=== PATIENT | female | born 1950 | race Hispanic/Latino ===

== ENCOUNTER 2018-07-30 10:57 | Outpatient (CLI) | payer MEDICARE | END 2018-07-30 10:58 | disposition home or self-care (01) | LOC: BICMAMMO 10:57 | PROVIDERS: ATTEND Nurse Practitioner Family | DX: Z12.31 Encounter for screening mammogram for malignant neoplasm of breast (principal); R92.1 Mammographic calcification found on diagnostic imaging of breast | CPT/HCPCS: 77063; 77067 ==

== ENCOUNTER 2018-09-11 11:12 | Emergency (ER) | payer MEDICARE | END 2018-09-11 11:58 | disposition home or self-care (01) | LOC: ERS 11:12 | DX: M54.16 Radiculopathy, lumbar region (principal); E11.9 Type 2 diabetes mellitus without complications; I10 Essential (primary) hypertension; Z79.899 Other long term (current) drug therapy; Z79.84 Long term (current) use of oral hypoglycemic drugs | CPT/HCPCS: 99283 ==

== ENCOUNTER 2019-08-19 16:07 | Outpatient (CLI) | payer MEDICARE ==
--- NOTE | 2019-08-19 16:45 | MMO ---
Bilateral MAMMO Bilat Screen [facility]. CLINICAL HISTORY: Patient is 69 years old and is seen for screening. The patient has no family history of breast cancer. The patient has no personal history of cancer. VIEWS: The views performed were: bilateral craniocaudal with tomosynthesis and bilateral mediolateral oblique with tomosynthesis. FILMS COMPARED: The present examination has been compared to prior imaging studies performed at [facility] on 10/22/2007, 11/06/2008, 05/12/2013 and 07/30/2018. This study has been interpreted with the assistance of computer-aided detection. MAMMOGRAM FINDINGS: There are scattered fibroglandular densities. There are stable benign appearing calcifications seen in both breasts. There are no suspicious masses, suspicious calcifications, or new areas of architectural distortion. IMPRESSION: THERE IS NO MAMMOGRAPHIC EVIDENCE OF MALIGNANCY. A ROUTINE FOLLOW-UP MAMMOGRAM IN 1 YEAR IS RECOMMENDED. THE RESULTS OF THIS EXAM WERE SENT TO THE PATIENT. ACR BI-RADS Category 2 - Benign finding MAMMOGRAPHY NOTE: 1. A negative mammogram report should not delay a biopsy if a dominant of clinically suspicious mass is present. 2. Approximately 10% to 15% of breast cancers are not detected by mammography. 3. Adenosis and dense breasts may obscure an underlying neoplasm. Reported by: JOSE GASCA MD Electonically Signed: [id number]
== END 2019-08-19 16:08 | disposition home or self-care (01) ==
LOC: BICMAMMO 16:07
PROVIDERS: ATTEND Nurse Practitioner Family
DX: Z12.31 Encounter for screening mammogram for malignant neoplasm of breast (principal)
CPT/HCPCS: 77063; 77067

== ENCOUNTER 2021-03-20 19:53 | Inpatient (IN) | payer OTHER, MEDICARE ==
[~2021-03-20 19:53] MED LIST: Iopamidol-370 76% 500 ML 1 ML ONE; Rocuronium Bromide 10 MG/ML (10ML VIAL) ONE
[2021-03-20] MEDS ORDERED: Ondansetron PF 4 MG/2 ML Vial ONE (20:02)
[2021-03-20] MEDS ORDERED: Morphine 4 MG/ML VIAL ONE (20:02)
[2021-03-20 20:26] LABS: ALT (SGPT) 69 U/L (8-55); AST (SGOT) 132 U/L (5-34); Albumin 4.3 g/dL (3.4-4.8); Alkaline Phosphatase 199 U/L (40-110); Anion Gap 20 mmol/L (10-20); BUN (Urea Nitrogen) 17 mg/dL (9.8-20.1); Bilirubin, Total 0.4 mg/dL (0.2-1.2); Calc. Creatinine Clearance 0 mL/min (70-130); Calcium 9.8 mg/dL (7.8-10.44); Carbon Dioxide 18 mmol/L (23-31); Chloride 105 mmol/L (98-107); Globulin 4.3 g/dL (2.4-3.5); Glucose 262 mg/dL (80-115); Potassium 4.1 mmol/L (3.5-5.1); Protein, Total 8.6 g/dL (5.8-8.1); Sodium 139 mmol/L (136-145)
[2021-03-20 20:33] LABS: INR-International Normal Ratio 0.9; PTT 26.3 sec (22.9-36.1); Prothrombin Time 12.7 sec (12.0-14.7)
[2021-03-20 20:41] LABS: #Basophils 0.1 thou/uL (0.0-0.2); #Eosinphils 0.1 thou/uL (0.0-0.7); #Lymphocytes 5.3 thou/uL (1.20-3.40); #Monocytes 0.5 thou/uL (0.11-0.59); #Neutrophils 7.1 thou/uL (1.40-6.50); %Basophils 0.8 % (0.0-1.0); %Eosinophils 0.8 % (0.0-10.0); %Lymphocytes 40.4 % (21.0-51.0); %Monocytes 4.1 % (0.0-10.0); Hemoglobin 15.1 g/dL (12.0-16.0); Mean Corpuscular HGB CONC 33.3 g/dL (32.0-36.0); Mean Corpuscular Volume 87.3 fL (78.0-98.0); Mean Platelet Volume 8.2 fL (7.4-10.4); Platelet Count 359 thou/uL (130-400); RBC Distribution Width 12.3 % (11.5-14.5); White Blood Cell (WBC) Count 13.2 thou/uL (4.8-10.8)
[2021-03-20] MEDS ORDERED: Piperacillin/Tazobactam 4.5 GM VIAL ONE (20:43)
[2021-03-20] MEDS ORDERED: Boostrix 0.5 ML (Tdap) VIAL ONE (20:46)
[2021-03-20] MEDS ORDERED: Propofol 1,000 MG/100 ML VIAL IV ONE (21:05)
[2021-03-20] MEDS ORDERED: Calcium Chloride 1 GM/10 ML Abboject SYRINGE ONE (21:20)
[2021-03-20] MEDS ORDERED: Rocuronium Bromide 10 MG/ML (10ML VIAL) ONE (21:20)
[2021-03-20] MEDS ORDERED: Fentanyl 100 MCG/2 ML VIAL ONE (21:20)
[2021-03-20] MEDS ORDERED: PHENYLEPHRINE-NS 100 MCG/ML 10 ML SYRINGE ONE (21:20)
[2021-03-20] MEDS ORDERED: Midazolam HCl 2 mg/2 ml Vial ONE (21:27)
[2021-03-20 21:42] LABS: SARS-CoV-2 NAA Rapid Test Not Detected (NotDetected)
[2021-03-20 21:54] LABS: Phosphorus 2.6 mg/dL (2.3-4.7)
[2021-03-20 22:49] LABS: Actual Bicarbonate (HCO3a) 20.3 mEq/L (22-28); Base Excess (BEa) -4.2 mEq/L (-2.0 to +3.0); CO2 Tension 35.7 mmHg (35.0-45.0); Calcium, Ionized (arterial) 1.09 mmol/L (1.12-1.30); Carboxyhemoglobin (COHb) 0.2 gm% (0.0-3.0); Hemoglobin (Hb) 14.1 g/dL (12.0-16.0); O2 Tension (PaO2), arterial 86.2 mmHg (> 80.0); Potassium - ABG Lab 3.65 mmol/L (3.70-5.30); pH, Arterial 7.37 (7.35-7.45)
[2021-03-20 22:53] LABS: Puncture Site Arterial Line
[2021-03-20] MEDS ORDERED: Phenylephrine 10 MG/ML VIAL ONE (23:07)
[2021-03-21 00:21] LABS: Actual Bicarbonate (HCO3a) 17.2 mEq/L (22-28); Base Excess (BEa) -8.2 mEq/L (-2.0 to +3.0); CO2 Tension 35.2 mmHg (35.0-45.0); Calcium, Ionized (arterial) 1.19 mmol/L (1.12-1.30); Carboxyhemoglobin (COHb) 0.1 gm% (0.0-3.0); O2 Tension (PaO2), arterial 210.7 mmHg (> 80.0); Potassium - ABG Lab 3.38 mmol/L (3.70-5.30); pH, Arterial 7.31 (7.35-7.45)
[2021-03-21] MEDS ORDERED: Piperacillin/Tazobactam 3.375 GM VIAL ONE (00:30)
[2021-03-21] MEDS ORDERED: Fentanyl 100 MCG/2 ML VIAL ONE (01:42)
[2021-03-21] MEDS ORDERED: Midazolam HCl 2 mg/2 ml Vial ONE ×2 (01:42→02:24)
[2021-03-21] MEDS ORDERED: Fentanyl CADD 100 ML ONE (02:43)
[2021-03-21] MEDS ORDERED: Ventilator Sedation Protocol 1 EACH FS ONE (03:15)
[2021-03-21] MEDS ORDERED: Dextrose 50% Abboject 50 ML SYRINGE SLOW IVP PRN (03:15)
[2021-03-21] MEDS ORDERED: Ondansetron PF 4 MG/2 ML Vial IVP PRN (03:15)
[2021-03-21] MEDS ORDERED: Dextrose 5% in Water 1,000 ML IV PRN (03:15)
[2021-03-21] MEDS ORDERED: Fentanyl CADD 100 ML IV SCH (03:45)
[2021-03-21] MEDS ORDERED: Morphine 2 MG/ML VIAL SLOW IVP PRN (03:45)
[2021-03-21] MEDS ORDERED: Fentanyl BOLUS 250 ML IVPB PRN (03:45)
[2021-03-21] MEDS ORDERED: DISCONTINUE PREVIOUS NARCOTIC PAIN MEDICATIONS AND BENZODIAZEPINES FS SCH (03:45)
[2021-03-21] MEDS ORDERED: Propofol 1,000 MG/100 ML VIAL IV PRN (03:45)
[2021-03-21] MEDS ORDERED: Lorazepam 2 MG/ML VIAL SLOW IVP PRN (03:45)
[2021-03-21] MEDS ORDERED: Propofol BOLUS 1,000 MG/100 ML VIAL IV PRN (03:45)
[2021-03-21] MEDS: Lactated Ringer's 1,000 ML IV SCH ×5 (03:59→16:33)
[2021-03-21 04:01] LABS: Actual Bicarbonate (HCO3a) 19.1 mEq/L (22-28); Base Excess (BEa) -7.1 mEq/L (-2.0 to +3.0); Calcium, Ionized (arterial) 1.19 mmol/L (1.12-1.30); Carboxyhemoglobin (COHb) 0.6 gm% (0.0-3.0); Hemoglobin (Hb) 14.7 g/dL (12.0-16.0); O2 Tension (PaO2), arterial 67.5 mmHg (> 80.0); Potassium - ABG Lab 3.44 mmol/L (3.70-5.30); pH, Arterial 7.29 (7.35-7.45)
[2021-03-21 04:02] LABS: Puncture Site Arterial Line
[2021-03-21] MEDS ORDERED: Albumin 5% 0 ML ONE (04:16)
[2021-03-21] MEDS ORDERED: Albumin 5% 250 ML ONE ×2 (04:17→04:18)
[2021-03-21] MEDS: Piperacillin/Tazobactam 3.375 GM in Sodium Chloride 0.9% 100 ML IVPB SCH ×3 (06:19→18:00)
[2021-03-21] MEDS: Enoxaparin Sodium 40 MG/0.4 ML SYRINGE SC SCH (08:16)
[2021-03-21 08:24] LABS: Lactic Acid 7.7 mmol/L (0.5-2.2)
[2021-03-21] MEDS: Famotidine/PF 20 mg/2ml Vial SLOW IVP SCH ×2 (09:14→21:03)
[2021-03-21] MEDS ORDERED: Hydrocortisone Sod Succ/PF 100 mg/2 ml Vial IVP SCH (09:15)
[2021-03-21 09:26] LABS: Anion Gap 17 mmol/L (10-20); BUN (Urea Nitrogen) 17 mg/dL (9.8-20.1); Calc. Creatinine Clearance 60 mL/min (70-130); Calcium 7.7 mg/dL (7.8-10.44); Carbon Dioxide 15 mmol/L (23-31); Chloride 115 mmol/L (98-107); Glucose 393 mg/dL (80-115); Magnesium 1.5 mg/dL (1.6-2.6); Phosphorus 2.1 mg/dL (2.3-4.7); Potassium 3.2 mmol/L (3.5-5.1); Sodium 144 mmol/L (136-145)
[2021-03-21] MEDS: Insulin Regular 300 UNITS/3 ML VIAL SC PRN ×3 (10:08→21:04)
[2021-03-21 10:39] LABS: Hemoglobin 11.5 g/dL (12.0-16.0); Mean Corpuscular HGB CONC 33.2 g/dL (32.0-36.0); Mean Corpuscular Hemoglobin 29.4 pg (27.0-31.0); Mean Corpuscular Volume 88.5 fL (78.0-98.0); Mean Platelet Volume 8.2 fL (7.4-10.4); Platelet Count 290 thou/uL (130-400); RBC Distribution Width 12.6 % (11.5-14.5); Red Blood Cell (RBC) Count 3.91 mill/uL (4.20-5.40); White Blood Cell (WBC) Count 4.6 thou/uL (4.8-10.8)
[2021-03-21] MEDS: Sodium Chloride 0.9% 500 ML IVPB SCH ×2 (10:45→13:00)
[2021-03-21 10:59] LABS: Analyzer IN Cardio OR; CO2 Tension 34.6 mmHg (35.0-45.0); Calcium, Ionized (arterial) 1.09 mmol/L (1.12-1.30); Carboxyhemoglobin (COHb) 0.5 gm% (0.0-3.0); Hemoglobin (Hb) 13.9 g/dL (12.0-16.0); O2 Tension (PaO2), arterial 80.5 mmHg (> 80.0); Potassium - ABG Lab 3.75 mmol/L (3.70-5.30)
[2021-03-21 11:00] LABS: Actual Bicarbonate (HCO3a) 16.7 mEq/L (22-28); Analyzer IN Cardio OR; Base Excess (BEa) -7.2 mEq/L (-2.0 to +3.0); CO2 Tension 29.5 mmHg (35.0-45.0); Calcium, Ionized (arterial) 1.17 mmol/L (1.12-1.30); Carboxyhemoglobin (COHb) 0.1 gm% (0.0-3.0); Hemoglobin (Hb) 13.3 g/dL (12.0-16.0); Potassium - ABG Lab 3.39 mmol/L (3.70-5.30); pH, Arterial 7.37 (7.35-7.45)
[2021-03-21 11:10] LABS: Puncture Site Arterial Line
[2021-03-21 11:11] LABS: Puncture Site Arterial Line
[2021-03-21 11:11] LABS: Band 44 % (5-11); Lymphocytes 15 % (21-51); MDiff Complete? YES; Metamyelocyte 13 % (0-0); Monocytes 9 % (0-10); Neutrophil 17 % (42-75); Platelet Morphology Comment Appears Adequate; Polychromasia SLIGHT = 2-3 cells (100X) (0-2/hpf); Reactive Lymphocytes 1 % (0-10); Reflex for Review?? NO; Vacuoles MODERATE
[2021-03-21] MEDS: Hydrocortisone Sod Succ/PF 100 mg/2 ml Vial IVP SCH ×2 (11:47→18:00)
[2021-03-21 13:19] LABS: Hemoglobin 10.2 g/dL (12.0-16.0); Platelet Count 238 thou/uL (130-400)
[2021-03-21] MEDS ORDERED: Sodium Chloride 0.9% 1,000 ML IV SCH (13:45)
[2021-03-21] MEDS ORDERED: Lactated Ringer's 1,000 ML IV SCH (14:45)
[2021-03-21] MEDS ORDERED: Potassium Phosphate 30 MMOL, Magnesium Sulfate 3 GM in Sodium Chloride 0.9% 250 ML 250 ML IVPB SCH (14:45)
[2021-03-21 18:20] LABS: Anion Gap 16 mmol/L (10-20); BUN (Urea Nitrogen) 17 mg/dL (9.8-20.1); Calc. Creatinine Clearance 69 mL/min (70-130); Calcium 7.3 mg/dL (7.8-10.44); Carbon Dioxide 16 mmol/L (23-31); Chloride 119 mmol/L (98-107); Glucose 242 mg/dL (80-115); Potassium 3.5 mmol/L (3.5-5.1); Sodium 147 mmol/L (136-145)
[2021-03-21] MEDS ORDERED: Acetaminophen 650 MG Suppository PR PRN (20:15)
[2021-03-21 22:07] LABS: Hemoglobin 9.6 g/dL (12.0-16.0); Platelet Count 211 thou/uL (130-400)
[2021-03-22] MEDS: Piperacillin/Tazobactam 3.375 GM in Sodium Chloride 0.9% 100 ML IVPB SCH ×5 (00:12→23:10)
[2021-03-22] MEDS: Hydrocortisone Sod Succ/PF 100 mg/2 ml Vial IVP SCH ×5 (00:13→23:10)
[2021-03-22 02:57] LABS: Hemoglobin 9.6 g/dL (12.0-16.0); Mean Corpuscular Hemoglobin 30.4 pg (27.0-31.0); Mean Corpuscular Volume 89.3 fL (78.0-98.0); Mean Platelet Volume 8.3 fL (7.4-10.4); Platelet Count 173 thou/uL (130-400); RBC Distribution Width 12.7 % (11.5-14.5); Red Blood Cell (RBC) Count 3.14 mill/uL (4.20-5.40); White Blood Cell (WBC) Count 11.8 thou/uL (4.8-10.8)
[2021-03-22 03:23] LABS: Band 43 % (5-11); Lymphocytes 10 % (21-51); MDiff Complete? YES; Metamyelocyte 2 % (0-0); Monocytes 1 % (0-10); Neutrophil 44 % (42-75)
[2021-03-22 03:49] LABS: Phosphorus 4.2 mg/dL (2.3-4.7)
[2021-03-22] MEDS: Insulin Regular 300 UNITS/3 ML VIAL SC PRN ×4 (03:54→22:14)
[2021-03-22] MEDS: Lactated Ringer's 1,000 ML IV SCH ×5 (03:56→18:24)
[2021-03-22 04:04] LABS: ALT (SGPT) 113 U/L (8-55); AST (SGOT) 125 U/L (5-34); Albumin 2.9 g/dL (3.4-4.8); Alkaline Phosphatase 68 U/L (40-110); Anion Gap 14 mmol/L (10-20); BUN (Urea Nitrogen) 18 mg/dL (9.8-20.1); Bilirubin, Total 1.1 mg/dL (0.2-1.2); Calc. Creatinine Clearance 71 mL/min (70-130); Calcium 7.8 mg/dL (7.8-10.44); Carbon Dioxide 18 mmol/L (23-31); Chloride 117 mmol/L (98-107); Globulin 1.9 g/dL (2.4-3.5); Glucose 219 mg/dL (80-115); Magnesium 2.1 mg/dL (1.6-2.6); Potassium 3.7 mmol/L (3.5-5.1); Protein, Total 4.8 g/dL (5.8-8.1); Sodium 145 mmol/L (136-145)
[2021-03-22 07:47] LABS: Hemoglobin 9.3 g/dL (12.0-16.0); Platelet Count 167 thou/uL (130-400)
[2021-03-22] MEDS: Enoxaparin Sodium 40 MG/0.4 ML SYRINGE SC SCH (09:38)
[2021-03-22] MEDS: Famotidine/PF 20 mg/2ml Vial SLOW IVP SCH ×2 (09:38→22:09)
[2021-03-22] MEDS ORDERED: Piperacillin/Tazobactam 3.375 GM VIAL ONE (11:08)
[2021-03-22] MEDS ORDERED: Hydrocortisone Sod Succ/PF 100 mg/2 ml Vial ONE ×2 (11:11→15:13)
[2021-03-22] MEDS ORDERED: Hydrocortisone Sod Succ/PF 100 mg/2 ml Vial IVP SCH (15:04)
[2021-03-22] MEDS ORDERED: Sodium Chloride 0.9% 1,000 ML IV SCH (15:15)
[2021-03-22 15:26] LABS: Platelet Count 138 thou/uL (130-400)
[2021-03-22] MEDS ORDERED: Norepinephrine 8 MG/0.9% NS 250 ML ONE (15:28)
[2021-03-22 15:43] LABS: Troponin I 0.123 ng/mL (< 0.028)
[2021-03-22] MEDS ORDERED: Vecuronium 10 MG VIAL ONE (16:02)
[2021-03-22 19:08] LABS: Puncture Site RRA
[2021-03-22] MEDS ORDERED: Norepinephrine 8 MG/0.9% NS 250 ML IVPB SCH (20:00)
[2021-03-22] MEDS ORDERED: Fentanyl CADD 100 ML ONE (21:39)
[2021-03-23 04:53] LABS: Troponin I 1.066 ng/mL (< 0.028)
[2021-03-23] MEDS ORDERED: Furosemide 40 MG/4 ML VIAL ONE ×2 (05:19→14:30)
[2021-03-23] MEDS: Hydrocortisone Sod Succ/PF 100 mg/2 ml Vial IVP SCH ×4 (05:21→23:48)
[2021-03-23] MEDS: Piperacillin/Tazobactam 3.375 GM in Sodium Chloride 0.9% 100 ML IVPB SCH ×4 (05:21→23:48)
[2021-03-23] MEDS: Lactated Ringer's 1,000 ML IV SCH (05:24)
[2021-03-23] MEDS ORDERED: Furosemide 40 MG/4 ML VIAL SLOW IVP SCH (05:30)
[2021-03-23 06:08] LABS: Anion Gap 15 mmol/L (10-20); BUN (Urea Nitrogen) 20 mg/dL (9.8-20.1); Calc. Creatinine Clearance 86 mL/min (70-130); Calcium 7.9 mg/dL (7.8-10.44); Carbon Dioxide 18 mmol/L (23-31); Chloride 118 mmol/L (98-107); Glucose 203 mg/dL (80-115); Potassium 3.5 mmol/L (3.5-5.1); Sodium 147 mmol/L (136-145)
[2021-03-23 06:18] LABS: Band 34 % (5-11); Hemoglobin 9.5 g/dL (12.0-16.0); Lymphocytes 5 % (21-51); MDiff Complete? YES; Mean Corpuscular HGB CONC 32.4 g/dL (32.0-36.0); Mean Corpuscular Hemoglobin 28.8 pg (27.0-31.0); Mean Platelet Volume 9.1 fL (7.4-10.4); Monocytes 1 % (0-10); Neutrophil 60 % (42-75); Platelet Count 181 thou/uL (130-400); RBC Distribution Width 12.9 % (11.5-14.5); Red Blood Cell (RBC) Count 3.31 mill/uL (4.20-5.40); White Blood Cell (WBC) Count 16.5 thou/uL (4.8-10.8)
[2021-03-23] MEDS ORDERED: Fentanyl 100 MCG/2 ML VIAL ONE (07:21)
[2021-03-23] MEDS ORDERED: Potassium Phosphate 30 MMOL in Sodium Chloride 0.9% 250 ML 250 ML IVPB SCH (07:30)
[2021-03-23] MEDS ORDERED: PROPOFOL 200 MG/20 ML VIAL ONE (07:48)
[2021-03-23] MEDS ORDERED: Rocuronium Bromide 10 MG/ML (10ML VIAL) ONE (07:48)
[2021-03-23 08:21] LABS: Phosphorus 2.6 mg/dL (2.3-4.7)
[2021-03-23] MEDS ORDERED: Dextrose 5% in Water 1,000 ML IV PRN (08:51)
[2021-03-23] MEDS ORDERED: Dextrose 50% Abboject 50 ML SYRINGE SLOW IVP PRN (08:51)
[2021-03-23] MEDS: Enoxaparin Sodium 40 MG/0.4 ML SYRINGE SC SCH (09:58)
[2021-03-23] MEDS: Famotidine/PF 20 mg/2ml Vial SLOW IVP SCH ×2 (09:58→21:47)
[2021-03-23] MEDS: Insulin Regular 300 UNITS/3 ML VIAL SC PRN ×3 (10:36→21:57)
[2021-03-23] MEDS ORDERED: Furosemide 20 MG/2 ML VIAL SLOW IVP SCH ×2 (14:45→22:30)
[2021-03-24] MEDS: Insulin Regular 300 UNITS/3 ML VIAL SC PRN ×2 (04:02→20:02)
[2021-03-24 04:43] LABS: Band 9 % (5-11); Hemoglobin 9.5 g/dL (12.0-16.0); Lymphocytes 7 % (21-51); MDiff Complete? YES; Mean Corpuscular HGB CONC 34.8 g/dL (32.0-36.0); Mean Corpuscular Hemoglobin 30.8 pg (27.0-31.0); Mean Corpuscular Volume 88.6 fL (78.0-98.0); Mean Platelet Volume 9.1 fL (7.4-10.4); Monocytes 2 % (0-10); Neutrophil 82 % (42-75); Platelet Count 128 thou/uL (130-400); RBC Distribution Width 12.5 % (11.5-14.5); Red Blood Cell (RBC) Count 3.09 mill/uL (4.20-5.40); White Blood Cell (WBC) Count 12.3 thou/uL (4.8-10.8)
[2021-03-24] MEDS: Piperacillin/Tazobactam 3.375 GM in Sodium Chloride 0.9% 100 ML IVPB SCH ×3 (05:07→18:10)
[2021-03-24] MEDS: Hydrocortisone Sod Succ/PF 100 mg/2 ml Vial IVP SCH ×2 (05:08→12:23)
[2021-03-24 05:24] LABS: Anion Gap 11 mmol/L (10-20); BUN (Urea Nitrogen) 16 mg/dL (9.8-20.1); Calc. Creatinine Clearance 92 mL/min (70-130); Calcium 7.8 mg/dL (7.8-10.44); Carbon Dioxide 25 mmol/L (23-31); Chloride 113 mmol/L (98-107); Glucose 187 mg/dL (80-115); Magnesium 1.8 mg/dL (1.6-2.6); Phosphorus 1.6 mg/dL (2.3-4.7); Potassium 2.3 mmol/L (3.5-5.1); Sodium 147 mmol/L (136-145)
[2021-03-24] MEDS ORDERED: MAGNESIUM SULFATE IVPB SCH (06:15)
[2021-03-24] MEDS ORDERED: POTASSIUM PHOSPHATE IVPB SCH (06:15)
[2021-03-24] MEDS ORDERED: SODIUM CHLORIDE 0.9% IVPB SCH (06:15)
[2021-03-24] MEDS: Famotidine/PF 20 mg/2ml Vial SLOW IVP SCH (08:26)
[2021-03-24] MEDS: Enoxaparin Sodium 40 MG/0.4 ML SYRINGE SC SCH (08:27)
[2021-03-24] MEDS: Famotidine 20 MG TAB PO SCH ×2 (09:00→20:11)
[2021-03-24] MEDS ORDERED: Sodium Bicarbonate Tab 325 MG TAB PER TUBE PRN (11:00)
[2021-03-24] MEDS ORDERED: Pancrelipase DR 12,000 1 CAP FS PRN (11:00)
[2021-03-24] MEDS ORDERED: Potassium Phosphate 20 MMOL in Sodium Chloride 0.9% 250 ML 250 ML IVPB SCH (12:00)
[2021-03-24] MEDS ORDERED: Furosemide 20 MG/2 ML VIAL SLOW IVP SCH ×2 (13:00→23:00)
[2021-03-24] MEDS ORDERED: hydrALAZINE 20 MG/ML VIAL SLOW IVP PRN (13:36)
[2021-03-24] MEDS ORDERED: Lisinopril 5 MG TAB PO SCH (14:15)
[2021-03-24] MEDS ORDERED: Melatonin 3 MG TAB PO PRN (23:27)
[2021-03-24] MEDS: Acetaminophen 650 MG/20.3 ML UDCUP PO SCH (23:58)
[2021-03-24] MEDS: Ketorolac Tromethamine 30 MG/ML VIAL IVP SCH (23:59)
[2021-03-25] MEDS ORDERED: Piperacillin/Tazobactam 3.375 GM VIAL ONE (00:14)
[2021-03-25] MEDS: Insulin Regular 300 UNITS/3 ML VIAL SC PRN ×3 (00:16→18:27)
[2021-03-25] MEDS: Piperacillin/Tazobactam 3.375 GM in Sodium Chloride 0.9% 100 ML IVPB SCH ×5 (00:16→23:21)
[2021-03-25] MEDS ORDERED: Morphine 4 MG/ML VIAL SLOW IVP SCH (02:37)
[2021-03-25 04:57] LABS: BUN (Urea Nitrogen) 13 mg/dL (9.8-20.1); Calc. Creatinine Clearance 96 mL/min (70-130); Calcium 8.4 mg/dL (7.8-10.44); Glucose 165 mg/dL (80-115); Magnesium 1.8 mg/dL (1.6-2.6)
[2021-03-25 05:06] LABS: Anion Gap 19 mmol/L (10-20); Carbon Dioxide 32 mmol/L (23-31); Chloride 106 mmol/L (98-107); Sodium 155 mmol/L (136-145)
[2021-03-25 05:13] LABS: Phosphorus 1.5 mg/dL (2.3-4.7); Potassium 2.3 mmol/L (3.5-5.1)
[2021-03-25] MEDS ORDERED: Electrolyte Replacement Protocol FS PRN (05:30)
[2021-03-25] MEDS ORDERED: Potassium Chloride 40 MEQ in Premix Bag 1 BAG IVPB SCH (05:30)
[2021-03-25] MEDS: Ketorolac Tromethamine 30 MG/ML VIAL IVP SCH ×4 (06:07→23:20)
[2021-03-25] MEDS ORDERED: [UNRECOGNIZED DRUG - OTHER] IVPB SCH (06:15)
[2021-03-25] MEDS ORDERED: POTASSIUM PHOSPHATE IVPB SCH (06:15)
[2021-03-25] MEDS ORDERED: MAGNESIUM SULFATE IVPB SCH (06:15)
[2021-03-25] MEDS: Acetaminophen 650 MG/20.3 ML UDCUP PO SCH ×4 (07:46→23:19)
[2021-03-25] MEDS ORDERED: Magnesium 2 GM/50 ML 2 GM in Premix Bag 1 BAG IVPB SCH (08:15)
[2021-03-25] MEDS ORDERED: Dextrose 5% in Water 1,000 ML IV SCH (08:15)
[2021-03-25] MEDS ORDERED: Potassium Phosphate 30 MMOL in Sodium Chloride 0.9% 500 ML IVPB SCH (08:15)
[2021-03-25] MEDS ORDERED: Lisinopril 5 MG TAB PO SCH (09:00)
[2021-03-25] MEDS: Famotidine 20 MG TAB PO SCH ×2 (09:49→20:50)
[2021-03-25] MEDS: Lisinopril 5 MG TAB PO SCH (09:50)
[2021-03-25] MEDS: Enoxaparin Sodium 40 MG/0.4 ML SYRINGE SC SCH (09:50)
[2021-03-25] MEDS ORDERED: Senokot 8.6 MG TAB PO PRN (11:21)
[2021-03-25] MEDS ORDERED: Morphine 4 MG/ML VIAL SLOW IVP PRN (11:27)
[2021-03-25] MEDS: traMADol HCl 50 MG TAB PO SCH ×3 (12:17→23:18)
[2021-03-25] MEDS: Potassium Phosphate 15 MMOL in Sodium Chloride 0.9% 250 ML 250 ML IVPB SCH (12:18)
[2021-03-25] MEDS: Saccharomyces boulardii 250 MG CAP PO SCH (20:50)
[2021-03-26] MEDS: traMADol HCl 50 MG TAB PO PRN ×3 (03:03→22:17)
[2021-03-26] MEDS: Acetaminophen 650 MG/20.3 ML UDCUP PO SCH ×4 (05:36→23:37)
[2021-03-26] MEDS: traMADol HCl 50 MG TAB PO SCH ×4 (05:47→23:33)
[2021-03-26] MEDS: Piperacillin/Tazobactam 3.375 GM in Sodium Chloride 0.9% 100 ML IVPB SCH (05:48)
[2021-03-26 06:37] LABS: Hemoglobin 9.6 g/dL (12.0-16.0); Mean Corpuscular Hemoglobin 28.2 pg (27.0-31.0); Mean Corpuscular Volume 87.9 fL (78.0-98.0); Mean Platelet Volume 9.2 fL (7.4-10.4); Platelet Count 124 thou/uL (130-400); RBC Distribution Width 12.7 % (11.5-14.5); Red Blood Cell (RBC) Count 3.39 mill/uL (4.20-5.40); White Blood Cell (WBC) Count 7.9 thou/uL (4.8-10.8)
[2021-03-26 07:12] LABS: Anion Gap 13 mmol/L (10-20); BUN (Urea Nitrogen) 14 mg/dL (9.8-20.1); Calc. Creatinine Clearance 114 mL/min (70-130); Calcium 7.9 mg/dL (7.8-10.44); Carbon Dioxide 33 mmol/L (23-31); Chloride 99 mmol/L (98-107); Glucose 163 mg/dL (80-115); Potassium 2.4 mmol/L (3.5-5.1); Sodium 143 mmol/L (136-145)
[2021-03-26] MEDS ORDERED: Magnesium 2 GM/50 ML 20 GM in Premix Bag 1 BAG IVPB SCH (07:45)
[2021-03-26 07:51] LABS: Band 5 % (5-11); Eosinophils 1 % (0-10); Lymphocytes 24 % (21-51); MDiff Complete? YES; Monocytes 2 % (0-10); Neutrophil 68 % (42-75); Platelet Morphology Comment Appears Decreased; Polychromasia SLIGHT = 2-3 cells (100X) (0-2/hpf)
[2021-03-26] MEDS: Potassium Chloride 20 MEQ in Premix Bag 1 BAG IVPB SCH ×3 (08:23→14:24)
[2021-03-26] MEDS: Enoxaparin Sodium 40 MG/0.4 ML SYRINGE SC SCH (08:23)
[2021-03-26] MEDS: Polyethylene Glycol 3350 17 GM Packet PO SCH (08:24)
[2021-03-26] MEDS: Saccharomyces boulardii 250 MG CAP PO SCH ×2 (08:24→21:08)
[2021-03-26] MEDS: Lisinopril 5 MG TAB PO SCH (08:24)
[2021-03-26] MEDS: Famotidine 20 MG TAB PO SCH ×2 (08:24→21:07)
[2021-03-26] MEDS: Potassium Phosphate 15 MMOL in Sodium Chloride 0.9% 250 ML 250 ML IVPB SCH (08:26)
[2021-03-26] MEDS: Insulin Regular 300 UNITS/3 ML VIAL SC PRN ×2 (12:02→16:29)
[2021-03-26] MEDS: guaiFENesin ER 600 MG TAB PO SCH (21:08)
[2021-03-27 05:21] LABS: Hemoglobin 10.9 g/dL (12.0-16.0); Mean Corpuscular HGB CONC 32.6 g/dL (32.0-36.0); Mean Corpuscular Hemoglobin 28.5 pg (27.0-31.0); Mean Corpuscular Volume 87.4 fL (78.0-98.0); Mean Platelet Volume 9.4 fL (7.4-10.4); Platelet Count 161 thou/uL (130-400); RBC Distribution Width 12.8 % (11.5-14.5); Red Blood Cell (RBC) Count 3.82 mill/uL (4.20-5.40)
[2021-03-27 05:38] LABS: Anion Gap 17 mmol/L (10-20); BUN (Urea Nitrogen) 10 mg/dL (9.8-20.1); Calc. Creatinine Clearance 120 mL/min (70-130); Carbon Dioxide 27 mmol/L (23-31); Chloride 97 mmol/L (98-107); Glucose 191 mg/dL (80-115); Magnesium 1.9 mg/dL (1.6-2.6); Phosphorus 2.2 mg/dL (2.3-4.7); Sodium 138 mmol/L (136-145)
[2021-03-27 05:39] LABS: Band 28 % (5-11); Lymphocytes 24 % (21-51); MDiff Complete? YES; Monocytes 3 % (0-10); Neutrophil 44 % (42-75); Platelet Morphology Comment Appears Adequate; Reactive Lymphocytes 1 % (0-10)
[2021-03-27 05:42] LABS: Potassium 2.9 mmol/L (3.5-5.1)
[2021-03-27] MEDS ORDERED: Potassium Chloride 20 MEQ TAB PO SCH (06:00)
[2021-03-27] MEDS ORDERED: Potassium Chloride 40 MEQ in Sodium Chloride 0.9% 250 ML 250 ML IVPB SCH (06:00)
[2021-03-27] MEDS: Acetaminophen 650 MG/20.3 ML UDCUP PO SCH ×4 (06:30→23:50)
[2021-03-27] MEDS: Insulin Regular 300 UNITS/3 ML VIAL SC PRN ×3 (06:30→18:37)
[2021-03-27] MEDS: traMADol HCl 50 MG TAB PO SCH ×4 (06:31→23:50)
[2021-03-27] MEDS: Enoxaparin Sodium 40 MG/0.4 ML SYRINGE SC SCH (09:29)
[2021-03-27] MEDS: guaiFENesin ER 600 MG TAB PO SCH ×2 (09:30→20:20)
[2021-03-27] MEDS: Lisinopril 5 MG TAB PO SCH (09:30)
[2021-03-27] MEDS: Famotidine 20 MG TAB PO SCH ×2 (09:30→20:20)
[2021-03-27] MEDS: Polyethylene Glycol 3350 17 GM Packet PO SCH (09:31)
[2021-03-27] MEDS: Saccharomyces boulardii 250 MG CAP PO SCH ×2 (09:32→20:21)
[2021-03-27] MEDS ORDERED: Furosemide 20 MG/2 ML VIAL SLOW IVP SCH (10:30)
[2021-03-27] MEDS: Potassium Phosphate 15 MMOL in Sodium Chloride 0.9% 250 ML 250 ML IVPB SCH (10:54)
[2021-03-27] MEDS ORDERED: Sucralfate 1 GM TAB PO PRN (11:49)
[2021-03-27 12:14] LABS: Bacteria/HPF None Seen HPF (None Seen); Bilirubin Negative (Negative); Blood, Urine Negative (Negative); Clarity Clear (Clear); Glucose, Urine (Dipstick) Greater than 1000 mg/dL (Negative); Ketone, Urine 60 mg/dL (Negative); Leukocyte Negative Leu/uL (Negative); Nitrite Negative (Negative); Protein, Urine (Dipstick) Negative (Neg-Trace); RBC/HPF 0-3 HPF (0-3); Specific Gravity, Urine 1.011 (1.002-1.036); Urobilinogen 3 mg/dL (Less than 2); WBC/HPF 0-3 HPF (0-3)
[2021-03-28 05:32] LABS: #Eosinphils 0.1 thou/uL (0.0-0.7); #Lymphocytes 1.6 thou/uL (1.20-3.40); #Monocytes 0.7 thou/uL (0.11-0.59); #Neutrophils 10.6 thou/uL (1.40-6.50); %Basophils 0.1 % (0.0-1.0); %Eosinophils 0.6 % (0.0-10.0); %Neutrophils 82.2 % (42.0-75.0); Hemoglobin 10.8 g/dL (12.0-16.0); Mean Corpuscular HGB CONC 34.2 g/dL (32.0-36.0); Mean Corpuscular Hemoglobin 29.9 pg (27.0-31.0); Mean Corpuscular Volume 87.2 fL (78.0-98.0); Mean Platelet Volume 9.4 fL (7.4-10.4); Platelet Count 210 thou/uL (130-400); RBC Distribution Width 13.1 % (11.5-14.5); Red Blood Cell (RBC) Count 3.63 mill/uL (4.20-5.40); White Blood Cell (WBC) Count 12.9 thou/uL (4.8-10.8)
[2021-03-28] MEDS: Acetaminophen 650 MG/20.3 ML UDCUP PO SCH ×3 (05:34→17:14)
[2021-03-28] MEDS: traMADol HCl 50 MG TAB PO SCH ×3 (05:34→17:09)
[2021-03-28 05:55] LABS: Anion Gap 16 mmol/L (10-20); BUN (Urea Nitrogen) 7 mg/dL (9.8-20.1); Calc. Creatinine Clearance 106 mL/min (70-130); Calcium 7.9 mg/dL (7.8-10.44); Carbon Dioxide 27 mmol/L (23-31); Chloride 98 mmol/L (98-107); Glucose 205 mg/dL (80-115); Magnesium 1.8 mg/dL (1.6-2.6); Phosphorus 2.5 mg/dL (2.3-4.7); Sodium 138 mmol/L (136-145)
[2021-03-28 05:57] LABS: Potassium 2.8 mmol/L (3.5-5.1)
[2021-03-28] MEDS ORDERED: Magnesium 2 GM/50 ML 2 GM in Premix Bag 1 BAG IVPB SCH (06:45)
[2021-03-28] MEDS: Insulin Regular 300 UNITS/3 ML VIAL SC PRN ×4 (06:52→20:18)
[2021-03-28] MEDS: Saccharomyces boulardii 250 MG CAP PO SCH (08:07)
[2021-03-28] MEDS: Enoxaparin Sodium 40 MG/0.4 ML SYRINGE SC SCH (08:07)
[2021-03-28] MEDS: Famotidine 20 MG TAB PO SCH ×2 (08:07→20:16)
[2021-03-28] MEDS: Lisinopril 5 MG TAB PO SCH (08:07)
[2021-03-28] MEDS: guaiFENesin ER 600 MG TAB PO SCH ×2 (08:07→20:16)
[2021-03-28] MEDS: Potassium Chloride 20 MEQ in Premix Bag 1 BAG IVPB SCH ×2 (08:54→11:00)
[2021-03-28] MEDS: Polyethylene Glycol 3350 17 GM Packet PO SCH (11:00)
[2021-03-28 12:05] VITALS: BMI 27.7
[2021-03-28] MEDS: Potassium Phosphate 15 MMOL in Sodium Chloride 0.9% 250 ML 250 ML IVPB SCH (17:09)
[2021-03-29] MEDS: traMADol HCl 50 MG TAB PO SCH ×5 (00:47→23:23)
[2021-03-29] MEDS: traMADol HCl 50 MG TAB PO PRN (00:48)
[2021-03-29] MEDS: Acetaminophen 650 MG/20.3 ML UDCUP PO SCH ×5 (00:48→23:22)
[2021-03-29] MEDS: Insulin Regular 300 UNITS/3 ML VIAL SC PRN ×4 (05:25→23:22)
[2021-03-29 05:48] LABS: Anion Gap 15 mmol/L (10-20); BUN (Urea Nitrogen) 7 mg/dL (9.8-20.1); Calc. Creatinine Clearance 106 mL/min (70-130); Calcium 7.8 mg/dL (7.8-10.44); Carbon Dioxide 25 mmol/L (23-31); Chloride 99 mmol/L (98-107); Glucose 193 mg/dL (80-115); Magnesium 1.9 mg/dL (1.6-2.6); Phosphorus 3.1 mg/dL (2.3-4.7); Potassium 3.1 mmol/L (3.5-5.1); Sodium 136 mmol/L (136-145)
[2021-03-29] MEDS ORDERED: Potassium Chloride 20 MEQ TAB PO SCH (07:45)
[2021-03-29] MEDS: Famotidine 20 MG TAB PO SCH ×2 (08:20→20:08)
[2021-03-29] MEDS: Lisinopril 5 MG TAB PO SCH (08:20)
[2021-03-29] MEDS: guaiFENesin ER 600 MG TAB PO SCH ×2 (08:21→20:08)
[2021-03-29] MEDS: Enoxaparin Sodium 40 MG/0.4 ML SYRINGE SC SCH (08:21)
[2021-03-29] MEDS: Polyethylene Glycol 3350 17 GM Packet PO SCH (08:21)
[2021-03-29] MEDS ORDERED: Calcium Carbonate 500 MG ChewTAB PO PRN (11:06)
[2021-03-29] MEDS: Potassium Phosphate 15 MMOL in Sodium Chloride 0.9% 250 ML 250 ML IVPB SCH (11:37)
[2021-03-30] MEDS: Acetaminophen 650 MG/20.3 ML UDCUP PO SCH ×2 (05:32→11:47)
[2021-03-30 05:33] LABS: #Eosinphils 0.2 thou/uL (0.0-0.7); #Lymphocytes 1.4 thou/uL (1.20-3.40); #Monocytes 0.7 thou/uL (0.11-0.59); #Neutrophils 8.2 thou/uL (1.40-6.50); %Basophils 0.4 % (0.0-1.0); %Eosinophils 1.8 % (0.0-10.0); %Lymphocytes 13.6 % (21.0-51.0); %Monocytes 6.4 % (0.0-10.0); %Neutrophils 77.7 % (42.0-75.0); Mean Corpuscular HGB CONC 32.2 g/dL (32.0-36.0); Mean Corpuscular Hemoglobin 28.3 pg (27.0-31.0); Mean Corpuscular Volume 87.9 fL (78.0-98.0); Platelet Count 362 thou/uL (130-400); RBC Distribution Width 13.7 % (11.5-14.5); Red Blood Cell (RBC) Count 3.54 mill/uL (4.20-5.40); White Blood Cell (WBC) Count 10.6 thou/uL (4.8-10.8)
[2021-03-30] MEDS: traMADol HCl 50 MG TAB PO SCH ×2 (05:33→11:47)
[2021-03-30] MEDS: Insulin Regular 300 UNITS/3 ML VIAL SC PRN ×2 (05:34→11:48)
[2021-03-30 05:53] LABS: Anion Gap 14 mmol/L (10-20); BUN (Urea Nitrogen) 7 mg/dL (9.8-20.1); Calc. Creatinine Clearance 104 mL/min (70-130); Calcium 7.9 mg/dL (7.8-10.44); Carbon Dioxide 24 mmol/L (23-31); Chloride 102 mmol/L (98-107); Glucose 189 mg/dL (80-115); Magnesium 1.9 mg/dL (1.6-2.6); Phosphorus 2.9 mg/dL (2.3-4.7); Potassium 3.5 mmol/L (3.5-5.1); Sodium 136 mmol/L (136-145)
[2021-03-30] MEDS ORDERED: Furosemide 20 MG/2 ML VIAL SLOW IVP SCH (08:15)
[2021-03-30] MEDS: Enoxaparin Sodium 40 MG/0.4 ML SYRINGE SC SCH (08:31)
[2021-03-30] MEDS: Famotidine 20 MG TAB PO SCH (08:31)
[2021-03-30] MEDS: guaiFENesin ER 600 MG TAB PO SCH (08:31)
[2021-03-30] MEDS: Polyethylene Glycol 3350 17 GM Packet PO SCH (08:32)
[2021-03-30] MEDS: Lisinopril 5 MG TAB PO SCH (08:33)
[2021-03-30] MEDS ORDERED: Potassium Phosphate 30 MMOL, Magnesium Sulfate 2 GM in Sodium Chloride 0.9% 250 ML 250 ML IVPB SCH (09:00)
[2021-03-30] MEDS ORDERED: Magnesium Sulfate 2 GM in Sodium Chloride 0.9% 100 ML IVPB SCH (09:00)
[2021-03-30] MEDS ORDERED: Morphine 4 MG/ML VIAL ONE (10:15)
[2021-03-30] MEDS ORDERED: Morphine 4 MG/ML VIAL SLOW IVP SCH ×2 (10:45)
[2021-03-30 11:13] VITALS: BP 127/76; TEMP 98.1
[2021-03-30] MEDS: traMADol HCl 50 MG TAB PO PRN (14:20)
== END 2021-03-30 14:30 | DRG 957 ==
LOC: ERS 19:53 → SDC/OP 21:39 → CCU 22:00 → SURG A 03-25 13:06
PROVIDERS: ADMIT Surgery; ATTEND Surgery
PROC: 05H633Z Insertion of Infusion Device into Left Subclavian Vein, Percutaneous Approach (ICD-10-PCS; principal; 2021-03-20)
PROC: 0BQT0ZZ Repair Diaphragm, Open Approach (ICD-10-PCS; 2021-03-21)
PROC: 0DQL0ZZ Repair Transverse Colon, Open Approach (ICD-10-PCS; 2021-03-21)
PROC: 0W9900Z Drainage of Right Pleural Cavity with Drainage Device, Open Approach (ICD-10-PCS; 2021-03-21)
PROC: 3E0M05Z Introduction of Adhesion Barrier into Peritoneal Cavity, Open Approach (ICD-10-PCS; 2021-03-21)
PROC: 0DH67UZ Insertion of Feeding Device into Stomach, Via Natural or Artificial Opening (ICD-10-PCS; 2021-03-21)
PROC: 0DQ80ZZ Repair Small Intestine, Open Approach (ICD-10-PCS; 2021-03-23)
DX: S27.808A Other injury of diaphragm, initial encounter (principal); A41.9 Sepsis, unspecified organism; S36.520A Contusion of ascending [right] colon, initial encounter; J96.00 Acute respiratory failure, unspecified whether with hypoxia or hypercapnia; K65.8 Other peritonitis; S22.42XA Multiple fractures of ribs, left side, initial encounter for closed fracture; J93.9 Pneumothorax, unspecified; S36.528A Contusion of other part of colon, initial encounter; E27.40 Unspecified adrenocortical insufficiency; E87.0 Hyperosmolality and hypernatremia; I24.8 Other forms of acute ischemic heart disease; D62 Acute posthemorrhagic anemia; E11.9 Type 2 diabetes mellitus without complications; I10 Essential (primary) hypertension; E87.70 Fluid overload, unspecified; K45.8 Other specified abdominal hernia without obstruction or gangrene; I95.9 Hypotension, unspecified; E87.6 Hypokalemia; D64.9 Anemia, unspecified; E83.39 Other disorders of phosphorus metabolism; E83.42 Hypomagnesemia; Z90.49 Acquired absence of other specified parts of digestive tract; Z79.84 Long term (current) use of oral hypoglycemic drugs; V89.2XXA Person injured in unspecified motor-vehicle accident, traffic, initial encounter
CPT/HCPCS: 31500; 36415; 36416; 36600; 70450; 71045; 71260; 72125; 74018; 74177; 76770; 80048; 80053; 81001; 82533; 82805; 83605; 83735; 83880; 84100; 84484; 85025; 85610; 85730; 86850; 86900; 86901; 90471; 90715; 93005; 93010; 93306; 94002; 94003; 94640; 96365; 96375; G0390; J0360; J1650; J1720; J1815; J1885; J1940; J2250; J2270; J2370; J2405; J2543; J2704; J3010; J3475; J3480; J3490; J7030; J7050; J7620; P9045; Q9967; S0028; U0002

== ENCOUNTER 2021-04-13 13:55 | Outpatient (CLI) | payer OTHER, MEDICARE | END 2021-04-13 13:56 | disposition home or self-care (01) | LOC: RAD 13:55 | PROVIDERS: ATTEND Surgery | DX: V89.2XXA Person injured in unspecified motor-vehicle accident, traffic, initial encounter (principal) | CPT/HCPCS: 71046 ==

== ENCOUNTER 2021-05-11 01:03 | Inpatient (IN) | payer MEDICARE ==
[2021-05-11 02:14] LABS: #Eosinphils 0.1 thou/uL (0.0-0.7); #Lymphocytes 2.4 thou/uL (1.20-3.40); #Monocytes 0.6 thou/uL (0.11-0.59); #Neutrophils 5.5 thou/uL (1.40-6.50); %Basophils 0.3 % (0.0-1.0); %Eosinophils 0.9 % (0.0-10.0); %Lymphocytes 27.6 % (21.0-51.0); %Monocytes 6.9 % (0.0-10.0); %Neutrophils 64.3 % (42.0-75.0); Hemoglobin 11.2 g/dL (12.0-16.0); Mean Corpuscular HGB CONC 33.6 g/dL (32.0-36.0); Mean Corpuscular Volume 83.3 fL (78.0-98.0); Mean Platelet Volume 7.1 fL (7.4-10.4); Platelet Count 356 thou/uL (130-400); RBC Distribution Width 14.8 % (11.5-14.5); White Blood Cell (WBC) Count 8.5 thou/uL (4.8-10.8)
[2021-05-11 02:34] LABS: ALT (SGPT) 8 U/L (8-55); AST (SGOT) 16 U/L (5-34); Albumin 3.6 g/dL (3.4-4.8); Alkaline Phosphatase 121 U/L (40-110); Anion Gap 11 mmol/L (10-20); BUN (Urea Nitrogen) 10 mg/dL (9.8-20.1); Bilirubin, Total 0.5 mg/dL (0.2-1.2); Calc. Creatinine Clearance 0 mL/min (70-130); Calcium 9.5 mg/dL (7.8-10.44); Carbon Dioxide 26 mmol/L (23-31); Chloride 101 mmol/L (98-107); Globulin 4.7 g/dL (2.4-3.5); Glucose 194 mg/dL (80-115); Potassium 4.1 mmol/L (3.5-5.1); Protein, Total 8.3 g/dL (5.8-8.1); Sodium 134 mmol/L (136-145)
[2021-05-11 04:08] LABS: Bacteria/HPF None Seen HPF (None Seen); Bilirubin Negative (Negative); Blood, Urine Negative (Negative); Clarity Clear (Clear); Glucose, Urine (Dipstick) Greater than 1000 mg/dL (Negative); Ketone, Urine Negative (Negative); Leukocyte 75 Leu/uL (Negative); Nitrite Negative (Negative); Protein, Urine (Dipstick) Negative (Neg-Trace); RBC/HPF 0-3 HPF (0-3); Specific Gravity, Urine 1.029 (1.002-1.036); Squamous Epithelial 0-3 HPF (0-3); Urobilinogen Normal mg/dL (Less than 2); pH, Urine 6.5 (5.0-9.0)
[2021-05-11] MEDS ORDERED: Morphine 4 MG/ML VIAL ONE (04:36)
[2021-05-11] MEDS ORDERED: Vancomycin 1 GM/200 ML BAG ONE (04:36)
[2021-05-11] MEDS ORDERED: Ondansetron PF 4 MG/2 ML Vial ONE ×2 (04:36→15:53)
[2021-05-11] MEDS ORDERED: Cefepime 2 GM VIAL ONE (04:36)
[2021-05-11] MEDS ORDERED: Dextrose 50% Abboject 50 ML SYRINGE SLOW IVP PRN (06:45)
[2021-05-11] MEDS ORDERED: Morphine 2 MG/ML VIAL SLOW IVP PRN ×2 (06:45→17:48)
[2021-05-11] MEDS ORDERED: hydrALAZINE 20 MG/ML VIAL SLOW IVP PRN (06:45)
[2021-05-11] MEDS ORDERED: Dextrose 5% in Water 1,000 ML IV PRN (06:45)
[2021-05-11] MEDS ORDERED: Insulin Regular 300 UNITS/3 ML VIAL SC PRN (06:53)
[2021-05-11] MEDS ORDERED: Heparin 1,000 UNITS/ML VIAL ONE (09:35)
[2021-05-11 11:43] VITALS: BMI 27.4
[2021-05-11] MEDS: Sodium Chloride 0.9% 1,000 ML IV SCH ×2 (11:54→16:56)
[2021-05-11] MEDS: Famotidine/PF 20 mg/2ml Vial SLOW IVP SCH ×2 (11:54→20:15)
[2021-05-11] MEDS ORDERED: Iopamidol 370 76% 100 ML VIAL ONE (13:50)
[2021-05-11] MEDS ORDERED: Phenylephrine 10 MG/ML VIAL ONE (15:14)
[2021-05-11] MEDS ORDERED: SUGAMMADEX SODIUM 200 MG/2 ML VIAL ONE (15:14)
[2021-05-11] MEDS ORDERED: Fentanyl 100 MCG/2 ML VIAL ONE (15:14)
[2021-05-11] MEDS ORDERED: PHENYLEPHRINE-NS 100 MCG/ML 10 ML SYRINGE ONE (15:14)
[2021-05-11] MEDS ORDERED: Linezolid 600 MG in Premix Bag 1 BAG IVPB SCH (15:45)
[2021-05-11] MEDS ORDERED: Levofloxacin 500 mg/D5W 100 ml Premix Bag ONE (15:47)
[2021-05-11] MEDS ORDERED: Succinylcholine 200 MG/10 ml SYRINGE FS ONE (15:53)
[2021-05-11] MEDS ORDERED: PROPOFOL 200 MG/20 ML VIAL ONE (15:53)
[2021-05-11] MEDS ORDERED: ePHEDrine Sulfate 50 MG/10 ML VIAL ONE (15:53)
[2021-05-11] MEDS ORDERED: Rocuronium Bromide 10 MG/ML (10ML VIAL) ONE (15:53)
[2021-05-11] MEDS ORDERED: Dexamethasone 20 MG/5 ML VIAL ONE (15:53)
[2021-05-11] MEDS ORDERED: Ondansetron HCl/PF 4 MG/2 ML Vial IVP PRN (16:27)
[2021-05-11] MEDS ORDERED: HYDROmorphone 2 MG/ML VIAL SLOW IVP PRN (16:27)
[2021-05-11] MEDS ORDERED: Promethazine HCl 25 MG/ML VIAL IVPB PRN (16:27)
[2021-05-11] MEDS ORDERED: traMADol HCl 50 MG TAB PO PRN (17:48)
[2021-05-11] MEDS: Acetaminophen 325 MG TAB PO SCH (20:15)
[2021-05-11] MEDS: Cefepime 2 GM in Sodium Chloride 0.9% 100 ML IVPB SCH (22:50)
[2021-05-11] MEDS: VANCOMYCIN 1.25 GM/250 ML BAG 1.25 GM in Premix Bag 1 BAG IVPB SCH (22:56)
[2021-05-11 23:12] LABS: SARS-CoV-2 NAA Rapid Test Not Detected (NotDetected)
[2021-05-12] MEDS: Sodium Chloride 0.9% 1,000 ML IV SCH ×2 (00:40→12:42)
[2021-05-12] MEDS: Acetaminophen 325 MG TAB PO SCH ×5 (01:40→22:53)
[2021-05-12 05:39] LABS: #Lymphocytes 1.7 thou/uL (1.20-3.40); #Monocytes 0.2 thou/uL (0.11-0.59); #Neutrophils 4.5 thou/uL (1.40-6.50); %Basophils 0.3 % (0.0-1.0); %Eosinophils 0.1 % (0.0-10.0); %Lymphocytes 26.9 % (21.0-51.0); %Monocytes 2.4 % (0.0-10.0); %Neutrophils 70.3 % (42.0-75.0); Hemoglobin 11.2 g/dL (12.0-16.0); Mean Corpuscular HGB CONC 33.2 g/dL (32.0-36.0); Mean Corpuscular Hemoglobin 27.9 pg (27.0-31.0); Mean Corpuscular Volume 83.9 fL (78.0-98.0); Mean Platelet Volume 7.3 fL (7.4-10.4); Platelet Count 358 thou/uL (130-400); RBC Distribution Width 14.7 % (11.5-14.5); Red Blood Cell (RBC) Count 4.03 mill/uL (4.20-5.40); White Blood Cell (WBC) Count 6.3 thou/uL (4.8-10.8)
[2021-05-12 06:06] LABS: Anion Gap 15 mmol/L (10-20); BUN (Urea Nitrogen) 11 mg/dL (9.8-20.1); Calc. Creatinine Clearance 87 mL/min (70-130); Calcium 9.3 mg/dL (7.8-10.44); Carbon Dioxide 23 mmol/L (23-31); Chloride 104 mmol/L (98-107); Glucose 128 mg/dL (80-115); Potassium 4.5 mmol/L (3.5-5.1); Sodium 137 mmol/L (136-145)
[2021-05-12] MEDS: metFORMIN 500 MG TAB PO SCH ×2 (08:48→21:42)
[2021-05-12] MEDS: Famotidine/PF 20 mg/2ml Vial SLOW IVP SCH ×2 (08:49→21:42)
[2021-05-12] MEDS: Loratadine 10 MG TAB PO SCH (08:49)
[2021-05-12] MEDS: Empagliflozin 10 MG TAB PO SCH (08:49)
[2021-05-12] MEDS: Cefepime 2 GM in Sodium Chloride 0.9% 100 ML IVPB SCH ×2 (10:26→21:42)
[2021-05-12] MEDS: Carvedilol 3.125 MG TAB PO SCH ×2 (11:11→17:10)
[2021-05-12] MEDS: VANCOMYCIN 1.25 GM/250 ML BAG 1.25 GM in Premix Bag 1 BAG IVPB SCH ×2 (11:45→22:46)
[2021-05-13] MEDS: Acetaminophen 325 MG TAB PO SCH ×3 (06:15→17:58)
[2021-05-13] MEDS: Carvedilol 3.125 MG TAB PO SCH ×2 (07:58→16:44)
[2021-05-13] MEDS ORDERED: Magnesium Citrate 300 ML BOT PO SCH (09:46)
[2021-05-13] MEDS: Cefepime 2 GM in Sodium Chloride 0.9% 100 ML IVPB SCH (10:08)
[2021-05-13] MEDS: Empagliflozin 10 MG TAB PO SCH (10:08)
[2021-05-13] MEDS: Loratadine 10 MG TAB PO SCH (10:08)
[2021-05-13] MEDS: Famotidine 20 MG TAB PO SCH ×2 (10:08→20:10)
[2021-05-13] MEDS: metFORMIN 500 MG TAB PO SCH ×2 (10:08→20:10)
[2021-05-13 10:41] LABS: Vancomycin, Trough 23.4 ug/mL
[2021-05-13] MEDS ORDERED: Vancomycin 1 GM in Premix Bag 1 BAG IVPB SCH (11:00)
[2021-05-13] MEDS: Piperacillin/Tazobactam 4.5 GM in Sodium Chloride 0.9% 100 ML IVPB SCH (17:58)
[2021-05-13] MEDS: Senokot S 8.6-50 MG TAB PO SCH (20:10)
[2021-05-14] MEDS: Acetaminophen 325 MG TAB PO SCH ×4 (00:43→17:10)
[2021-05-14] MEDS: Piperacillin/Tazobactam 4.5 GM in Sodium Chloride 0.9% 100 ML IVPB SCH ×3 (00:43→17:11)
[2021-05-14] MEDS: Famotidine 20 MG TAB PO SCH ×2 (08:06→20:50)
[2021-05-14] MEDS: Loratadine 10 MG TAB PO SCH (08:06)
[2021-05-14] MEDS: Senokot S 8.6-50 MG TAB PO SCH ×2 (08:06→20:50)
[2021-05-14] MEDS: Carvedilol 3.125 MG TAB PO SCH ×2 (08:06→17:10)
[2021-05-14] MEDS: metFORMIN 500 MG TAB PO SCH ×2 (08:06→20:49)
[2021-05-14] MEDS: Empagliflozin 10 MG TAB PO SCH (08:06)
[2021-05-14] MEDS: Polyethylene Glycol 3350 17 GM Packet PO SCH (08:07)
[2021-05-15] MEDS: Piperacillin/Tazobactam 4.5 GM in Sodium Chloride 0.9% 100 ML IVPB SCH ×3 (00:47→17:26)
[2021-05-15] MEDS: Acetaminophen 325 MG TAB PO SCH ×4 (00:47→17:25)
[2021-05-15] MEDS: Loratadine 10 MG TAB PO SCH (09:02)
[2021-05-15] MEDS: metFORMIN 500 MG TAB PO SCH ×2 (09:02→21:59)
[2021-05-15] MEDS: Carvedilol 3.125 MG TAB PO SCH ×2 (09:03→15:44)
[2021-05-15] MEDS: Senokot S 8.6-50 MG TAB PO SCH ×2 (09:03→21:59)
[2021-05-15] MEDS: Famotidine 20 MG TAB PO SCH ×2 (09:03→21:59)
[2021-05-15] MEDS: Polyethylene Glycol 3350 17 GM Packet PO SCH (09:09)
[2021-05-15] MEDS: Empagliflozin 10 MG TAB PO SCH (09:59)
[2021-05-15] MEDS: Enoxaparin Sodium 40 MG/0.4 ML SYRINGE SC SCH (21:59)
[2021-05-16] MEDS: Acetaminophen 325 MG TAB PO SCH ×4 (01:25→17:17)
[2021-05-16] MEDS: Piperacillin/Tazobactam 4.5 GM in Sodium Chloride 0.9% 100 ML IVPB SCH ×3 (02:17→17:19)
[2021-05-16] MEDS: Saccharomyces boulardii 250 MG CAP PO SCH (09:07)
[2021-05-16] MEDS: Polyethylene Glycol 3350 17 GM Packet PO SCH (09:08)
[2021-05-16] MEDS: metFORMIN 500 MG TAB PO SCH ×2 (09:08→20:41)
[2021-05-16] MEDS: Loratadine 10 MG TAB PO SCH (09:08)
[2021-05-16] MEDS: Senokot S 8.6-50 MG TAB PO SCH ×2 (09:08→20:41)
[2021-05-16] MEDS: Empagliflozin 10 MG TAB PO SCH (09:08)
[2021-05-16] MEDS: Famotidine 20 MG TAB PO SCH ×2 (09:08→20:42)
[2021-05-16] MEDS: Carvedilol 3.125 MG TAB PO SCH ×2 (09:10→17:17)
[2021-05-16 13:03] LABS: #Eosinphils 0.1 thou/uL (0.0-0.7); #Lymphocytes 2.1 thou/uL (1.20-3.40); #Monocytes 0.3 thou/uL (0.11-0.59); #Neutrophils 4.3 thou/uL (1.40-6.50); %Basophils 0.1 % (0.0-1.0); %Eosinophils 1.1 % (0.0-10.0); %Lymphocytes 31.3 % (21.0-51.0); %Monocytes 4.3 % (0.0-10.0); %Neutrophils 63.2 % (42.0-75.0); Hemoglobin 10.9 g/dL (12.0-16.0); Mean Corpuscular HGB CONC 31.8 g/dL (32.0-36.0); Mean Corpuscular Hemoglobin 26.8 pg (27.0-31.0); Mean Corpuscular Volume 84.2 fL (78.0-98.0); Mean Platelet Volume 7.1 fL (7.4-10.4); Platelet Count 349 thou/uL (130-400); RBC Distribution Width 14.6 % (11.5-14.5); Red Blood Cell (RBC) Count 4.06 mill/uL (4.20-5.40); White Blood Cell (WBC) Count 6.8 thou/uL (4.8-10.8)
[2021-05-16 13:30] LABS: ALT (SGPT) 9 U/L (8-55); AST (SGOT) 19 U/L (5-34); Albumin 3.4 g/dL (3.4-4.8); Alkaline Phosphatase 98 U/L (40-110); Anion Gap 13 mmol/L (10-20); BUN (Urea Nitrogen) 5 mg/dL (9.8-20.1); Bilirubin, Total 0.4 mg/dL (0.2-1.2); Calc. Creatinine Clearance 97 mL/min (70-130); Calcium 9.1 mg/dL (7.8-10.44); Carbon Dioxide 24 mmol/L (23-31); Chloride 107 mmol/L (98-107); Globulin 4.2 g/dL (2.4-3.5); Glucose 104 mg/dL (80-115); Potassium 3.6 mmol/L (3.5-5.1); Protein, Total 7.6 g/dL (5.8-8.1); Sodium 140 mmol/L (136-145)
[2021-05-16] MEDS: Enoxaparin Sodium 40 MG/0.4 ML SYRINGE SC SCH (20:41)
[2021-05-17] MEDS: Acetaminophen 325 MG TAB PO SCH ×4 (00:37→17:47)
[2021-05-17] MEDS: Piperacillin/Tazobactam 4.5 GM in Sodium Chloride 0.9% 100 ML IVPB SCH ×3 (02:15→17:46)
[2021-05-17] MEDS: Saccharomyces boulardii 250 MG CAP PO SCH (08:23)
[2021-05-17] MEDS: Empagliflozin 10 MG TAB PO SCH (08:24)
[2021-05-17] MEDS: metFORMIN 500 MG TAB PO SCH (08:24)
[2021-05-17] MEDS: Loratadine 10 MG TAB PO SCH (08:24)
[2021-05-17] MEDS: Famotidine 20 MG TAB PO SCH (08:24)
[2021-05-17] MEDS: Carvedilol 3.125 MG TAB PO SCH ×2 (08:25→16:53)
[2021-05-17] MEDS: Senokot S 8.6-50 MG TAB PO SCH (08:26)
[2021-05-17] MEDS: Polyethylene Glycol 3350 17 GM Packet PO SCH (08:26)
[2021-05-17 16:34] VITALS: BP 127/73; TEMP 98.1
[2021-05-18] MEDS ORDERED: Piperacillin/Tazobactam 3.375 GM in Sodium Chloride 0.9% 100 ML IVPB SCH (09:00)
== END 2021-05-17 20:25 | disposition home or self-care (01) | DRG 603 ==
LOC: ERS 01:03 → ERHOLD 04:06 → SJJU 11:18 → OBSVTOIN 05-12 16:05
PROVIDERS: ADMIT Surgery; ATTEND Surgery
PROC: 0J980ZX Drainage of Abdomen Subcutaneous Tissue and Fascia, Open Approach, Diagnostic (ICD-10-PCS; principal; 2021-05-11)
PROC: 02HV33Z Insertion of Infusion Device into Superior Vena Cava, Percutaneous Approach (ICD-10-PCS; 2021-05-16)
PROC: B5181ZA Fluoroscopy of Superior Vena Cava using Low Osmolar Contrast, Guidance (ICD-10-PCS; 2021-05-16)
PROC: B548ZZA Ultrasonography of Superior Vena Cava, Guidance (ICD-10-PCS; 2021-05-16)
DX: L02.211 Cutaneous abscess of abdominal wall (principal); I10 Essential (primary) hypertension; E11.9 Type 2 diabetes mellitus without complications; Z20.822 Contact with and (suspected) exposure to COVID-19; Z90.49 Acquired absence of other specified parts of digestive tract; Z79.84 Long term (current) use of oral hypoglycemic drugs; Z79.899 Other long term (current) drug therapy
CPT/HCPCS: 36415; 36416; 36569; 74177; 80048; 80053; 80202; 81003; 81015; 83605; 85025; 87040; 87070; 87076; 87077; 87186; 87205; 90471; 90732; 96365; 96366; 96367; 96375; 96376; C1751; G0009; G0378; J0692; J1100; J1644; J1650; J1956; J2270; J2370; J2405; J2543; J2704; J3010; J3370; J3490; Q9967; S0028; U0002; U0005

== ENCOUNTER 2021-05-31 08:08 | Outpatient (CLI) | payer MEDICARE ==
[2021-05-31] MEDS ORDERED: Iopamidol 370 76% 100 ML VIAL ONE (09:21)
== END 2021-05-31 08:09 | disposition home or self-care (01) ==
LOC: CT 08:08
PROVIDERS: ATTEND Surgery
DX: R19.03 Right lower quadrant abdominal swelling, mass and lump (principal); S31.109A Unspecified open wound of abdominal wall, unspecified quadrant without penetration into peritoneal cavity, initial encounter; J98.11 Atelectasis; K59.00 Constipation, unspecified; K65.1 Peritoneal abscess; Z98.890 Other specified postprocedural states; Z87.828 Personal history of other (healed) physical injury and trauma
CPT/HCPCS: 74177; 80053; 85025; 86140; Q9967

== ENCOUNTER 2021-06-13 18:28 | Emergency (ER) | payer MEDICARE | END 2021-06-13 21:54 | disposition home or self-care (01) | LOC: ERS 18:28 | DX: G89.18 Other acute postprocedural pain (principal); R10.9 Unspecified abdominal pain; E11.9 Type 2 diabetes mellitus without complications; I10 Essential (primary) hypertension; Z79.899 Other long term (current) drug therapy | CPT/HCPCS: 36415; 80053; 83605; 85025; 99284 ==